=== PATIENT | female | born 1965 | race Caucasian/White ===

== ENCOUNTER 2016-09-23 10:12 | Emergency (ER) | payer MEDICAID ==
[2016-09-23] MEDS ORDERED: OPTIRAY 350 100 ML VIAL HMH IV ONE (10:13)
[2016-09-23] MEDS ORDERED: KETOROLAC 30 MG/ML VIAL ONE (12:01)
[2016-09-23] MEDS ORDERED: KETOROLAC 60 MG/2 ML VIAL IM ONE (12:58)
[2016-09-23] MEDS ORDERED: LIDOCAINE 1% MDV 20 ML ONE (15:01)
== END 2016-09-23 15:40 | disposition home or self-care (01) ==
LOC: ER 10:12
DX: S01.81XA Laceration without foreign body of other part of head, initial encounter (principal); S92.535A Nondisplaced fracture of distal phalanx of left lesser toe(s), initial encounter for closed fracture; S23.3XXA Sprain of ligaments of thoracic spine, initial encounter; S33.5XXA Sprain of ligaments of lumbar spine, initial encounter; W01.0XXA Fall on same level from slipping, tripping and stumbling without subsequent striking against object, initial encounter; Y92.019 Unspecified place in single-family (private) house as the place of occurrence of the external cause; F17.210 Nicotine dependence, cigarettes, uncomplicated
CPT/HCPCS: 36415; 70450; 72072; 72100; 72170; 80053; 80307; 81003; 85025; 96372